=== PATIENT | female | born 1980 | race Caucasian/White ===

== ENCOUNTER 2016-11-15 11:23 | Emergency (ER) | payer SELFPAY ==
[~2016-11-15] VITALS: Ht 152.4 cm; Wt 85.0 kg
[2016-11-15 11:28] VITALS: BP 132/87; PULSE 72; RESP 16; TEMP 98.4; O2SAT 99
[2016-11-15 12:10] LABS: BLOOD, URINE NEG (NEG); GLUCOSE,URINE NEG (NEG); KETONE, URINE NEG (NEG); NITRITE,URINE NEG (NEG)
[2016-11-15 12:14] LABS: METHOD OF COLLECTION CLEAN CATCH; URINE COLOR YELLOW (YELLW/STRAW)
[2016-11-15 12:16] LABS: RBC, URINE 0-3 /hpf (0-3); SQUAMOUS EPITHELIAL CELL URINE 0-5 /hpf (0-5); WBC, URINE 0-2 /hpf (0-5)
[2016-11-15 12:17] LABS: COMMENT (UR) CULT NOT INDICATED; CULTURE IF INDICATED CULT NOT INDICATED
--- NOTE | 2016-11-15 12:20 | PD ---
HPI Chief Complaint: Dizziness Time Seen by Provider: 12:02 Travel History International Travel<30 days: No Contact w/Intl Traveler<30days: No Traveled to known affect area: No History of Present Illness HPI 36-year-old woman presents to the emergency department complaining of feeling lightheaded and dizzy. She's been late on her period which is unusual for her. Her period was due about 8 days ago. She's had a little bit of abnormal vaginal discharge. She also had nausea with one episode of vomiting. States she just hasn't really felt like herself for the past several days. She sexually active one male partner. She otherwise had been feeling generally well and healthy prior to this. History Past Medical History Medical History: Denies Significant Hx LMP: 10/08/2016 Social History Tobacco Use: No Allergies-Medications (Allergen,Severity, Reaction): Coded Allergies: No Known Allergies (Unverified , 11/15/16) Reported Meds & Prescriptions Reported Meds & Active Scripts Active No Active Prescriptions or Reported Medications Review of Systems Except as stated in HPI: all other systems reviewed are Neg Physical Exam Narrative GENERAL: Well-appearing 36 year-old woman, no acute distress. SKIN: Focused skin assessment warm/dry. NECK: Trachea midline. No JVD. CARDIOVASCULAR: Regular rate and rhythm. No murmur appreciated. RESPIRATORY: No accessory muscle use. Clear to auscultation. Breath sounds equal bilaterally. GASTROINTESTINAL: Abdomen soft, non-tender, nondistended. Hepatic and splenic margins not palpable. MUSCULOSKELETAL: No obvious deformities. No edema. PELVIC: Normal external female genitalia. Thin white vaginal discharge in the vaginal vault. Normal appearance of the cervix with a small red nodule at the 11 o'clock position. Mild adnexal tenderness. No cervical motion tenderness. No palpable uterine enlargement or adnexal masses. Data Data Last Documented VS Vital Signs Date Time Temp Pulse Resp B/P Pulse Ox O2 Delivery O2 Flow Rate FiO2 11/15/16 13:40 68 16 116/82 100 Room Air 11/15/16 11:28 98.4 Orders Urinalysis - C+S If Indicated (11/15/16 12:03) Ed Urine Pregnancytest Poc (11/15/16 12:03) Complete Blood Count With Diff (11/15/16 12:08) Basic Metabolic Panel (Bmp) (11/15/16 12:08) Gc And Chlamydia Pcr (11/15/16 12:08) Wet Prep Profile (11/15/16 12:08) Thyroid Stimulating Hormone (11/15/16 12:08) Labs Laboratory Tests Test 11/15/16 11/15/16 11/15/16 12:00 12:15 12:35 Urine Collection Type CLEAN CATCH Urine Color YELLOW Urine Turbidity CLEAR Urine pH 7.0 Urine Specific [place] 1.012 Urine Protein NEG mg/dL Urine Glucose (UA) NEG mg/dL Urine Ketones NEG mg/dL Urine Occult Blood NEG Urine Nitrite NEG Urine Bilirubin NEG Urine Leukocyte Esterase NEG Urine RBC 0-3 /hpf Urine WBC 0-2 /hpf Urine Squamous Epithelial 0-5 /hpf Cells Microscopic Urinalysis Comment CULT NOT INDICATED Urine Collection Time 12:00 White Blood Count 7.4 TH/MM3 Red Blood Count 4.85 MIL/MM3 Hemoglobin 14.5 GM/DL Hematocrit 41.5 % Mean Corpuscular Volume 85.4 FL Mean Corpuscular Hemoglobin 29.9 PG Mean Corpuscular Hemoglobin 35.0 % Concent Red Cell Distribution Width 12.1 % Platelet Count 177 TH/MM3 Mean Platelet Volume 10.3 FL Neutrophils (%) (Auto) 70.1 % Lymphocytes (%) (Auto) 22.2 % Monocytes (%) (Auto) 6.6 % Eosinophils (%) (Auto) 0.5 % Basophils (%) (Auto) 0.6 % Neutrophils # (Auto) 5.3 TH/MM3 Lymphocytes # (Auto) 1.6 TH/MM3 Monocytes # (Auto) 0.5 TH/MM3 Eosinophils # (Auto) 0.0 TH/MM3 Basophils # (Auto) 0.0 TH/MM3 CBC Comment DIFF FINAL Differential Comment Sodium Level 144 MEQ/L Potassium Level 3.8 MEQ/L Chloride Level 109 MEQ/L Carbon Dioxide Level 28.7 MEQ/L Anion Gap 6 MEQ/L Blood Urea Nitrogen 7 MG/DL Creatinine 0.80 MG/DL Estimat Glomerular Filtration 82 ML/MIN Rate Random Glucose 82 MG/DL Calcium Level 8.4 MG/DL Thyroid Stimulating Hormone 1.710 uIU/ML 3rd Gen Clue Cells (Wet Prep) NONE SEEN Vaginal Trichomonas (Wet Prep) NONE SEEN Vaginal Yeast (Wet Prep) NONE SEEN MDM Medical Decision Making Medical Screen Exam Complete: Yes Emergency Medical Condition: Yes Interpretation(s) LABS: CBC is unremarkable. BMP is unremarkable. TSH normal UA negative Wet prep negative Differential Diagnosis Anemia, electrolyte abnormality, thyroid disease, pelvic infection, UTI, other Narrative Course Medical decision making INITIAL: 36 year-old woman presents emergency Department with vague symptoms of feeling lightheaded dizzy and not well. She is a little bit of nausea once or vomiting. She is not . We'll check UA. We'll check basic labs. We' ll check thyroid studies. Diagnosis Primary Impression: Weakness Additional Instructions: Follow-up with your primary doctor in the next 2-4 days. Return to the emergency department for any new or worsening symptoms. Med/Other Pt SpecificInfo: No Change to Meds Scripts No Active Prescriptions or Reported Meds Disposition: 01 DISCHARGE HOME Condition: Stable Vidal Hurtado MD Nov 15, 2016 12:20
[2016-11-15 12:26] LABS: AUTOMATED NEUTROPHIL # 5.3 TH/MM3 (1.8-7.7); BASOPHIL % 0.6 % (0.0-2.0); EOSINOPHIL % 0.5 % (0.0-4.0); HEMATOCRIT 41.5 % (35.0-46.0); HEMO FLAGS DIFF FINAL; LYMPH % 22.2 % (9.0-44.0); LYMPHOCYTE # 1.6 TH/MM3 (1.0-4.8); MEAN CELL VOLUME 85.4 FL (80.0-100.0); MEAN CORPUSCULAR HEMOGLOBIN 29.9 PG (27.0-34.0); MONO % 6.6 % (0.0-8.0); NEUT % 70.1 % (16.0-70.0); PLATELET COUNT 177 TH/MM3 (150-450); RED BLOOD COUNT 4.85 MIL/MM3 (4.00-5.30); RED CELL DISTRIBUTION WIDTH 12.1 % (11.6-17.2); WHITE BLOOD COUNT 7.4 TH/MM3 (4.0-11.0)
[2016-11-15 12:33] LABS: POTASSIUM 3.8 MEQ/L (3.5-5.1)
[2016-11-15 12:36] LABS: BICARBONATE 28.7 MEQ/L (21.0-32.0)
[2016-11-15 12:40] VITALS: BP 119/61; PULSE 74; RESP 18; O2SAT 97
[2016-11-15 13:40] VITALS: BP 116/82; PULSE 68; RESP 16; O2SAT 100
[2016-11-15 17:41] LABS: CHLAMYDIA PCR NOT DETECTED (NOT DETECT); NEISSERIA PCR NOT DETECTED (NOT DETECT)
== END 2016-11-15 14:21 | disposition home or self-care (01) ==
LOC: PHED 11:23
DX: R53.1 Weakness (principal); R42 Dizziness and giddiness; N89.8 Other specified noninflammatory disorders of vagina; R11.2 Nausea with vomiting, unspecified
CPT/HCPCS: 80048; 81001; 84443; 84703; 85025; 87210; 87491; 87591; 99283

== ENCOUNTER 2016-11-23 19:43 | Emergency (ER) | payer SELFPAY ==
[~2016-11-23] VITALS: Ht 152.4 cm; Wt 85.0 kg
[2016-11-23 19:45] VITALS: BP 150/105; PULSE 76; RESP 16; TEMP 98.2; O2SAT 98
[2016-11-23 20:37] LABS: BLOOD, URINE NEG (NEG); GLUCOSE,URINE NEG (NEG); KETONE, URINE NEG (NEG); NITRITE,URINE NEG (NEG)
[2016-11-23 20:38] LABS: AUTOMATED NEUTROPHIL # 6.3 TH/MM3 (1.8-7.7); BASOPHIL # 0.2 TH/MM3 (0-0.2); BASOPHIL % 2.3 % (0.0-2.0); EOSINOPHIL # 0.1 TH/MM3 (0-0.4); EOSINOPHIL % 0.7 % (0.0-4.0); HEMATOCRIT 41.6 % (35.0-46.0); HEMO FLAGS DIFF FINAL; LYMPH % 21.7 % (9.0-44.0); MEAN CELL VOLUME 85.4 FL (80.0-100.0); MEAN CORPUSCULAR HEMOGLOBIN 29.6 PG (27.0-34.0); MEAN CORPUSCULAR HGB CONC 34.7 % (32.0-36.0); MONO % 5.8 % (0.0-8.0); NEUT % 69.5 % (16.0-70.0); PLATELET COUNT 210 TH/MM3 (150-450); RED BLOOD COUNT 4.87 MIL/MM3 (4.00-5.30); RED CELL DISTRIBUTION WIDTH 12.6 % (11.6-17.2); WHITE BLOOD COUNT 9.1 TH/MM3 (4.0-11.0)
[2016-11-23 20:43] LABS: BACTERIA, URINE RARE /hpf; RBC, URINE 0-2 /hpf (0-3); SQUAMOUS EPITHELIAL CELL URINE 0-5 /hpf (0-5); URINE COLOR YELLOW (YELLW/STRAW); WBC, URINE 0-2 /hpf (0-5)
[2016-11-23 20:44] LABS: COMMENT (UR) CULT NOT INDICATED; CULTURE IF INDICATED CULT NOT INDICATED
[2016-11-23 20:45] LABS: CHLORIDE 105 MEQ/L (98-107); POTASSIUM 3.5 MEQ/L (3.5-5.1); SODIUM (NA) 141 MEQ/L (136-145)
[2016-11-23 20:49] LABS: ANION GAP 8 MEQ/L (5-15); BICARBONATE 28.1 MEQ/L (21.0-32.0); BLOOD UREA NITROGEN 10 MG/DL (7-18)
[2016-11-23 20:52] LABS: ALT (GPT) 33 U/L (10-53); AST (GOT) 20 U/L (15-37); GLOMERULAR FILTRATION RATE 74 ML/MIN (>89)
[2016-11-23 20:54] LABS: TOTAL BILIRUBIN ADULT 0.7 MG/DL (0.2-1.0)
[2016-11-23 20:55] LABS: ALKALINE PHOSPHATASE 91 U/L (45-117)
[2016-11-23 20:57] LABS: BETA HCG QUANT 34 MIU/ML (0-5)
--- NOTE | 2016-11-23 21:28 | PD ---
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 She states she has a titer test scheduled for Friday. She did not know she was when she came in but does have a positive beta titer at 34. She has some slight midline suprapubic discomfort. She states she had some slight spotting today. She thinks her blood type is B+. PFS Past Medical History Medical History: Denies Significant Hx Diminished Hearing: No Tetanus Vaccination: Unknown Influenza Vaccination: No ?: Unknown LMP: october 07 Past Surgical History Surgical History: No Previous Surgery Social History Alcohol Use: No Tobacco Use: No Substance Use: No Allergies-Medications (Allergen,Severity, Reaction): Coded Allergies: No Known Allergies (Unverified , 11/15/16) Reported Meds & Prescriptions Reported Meds & Active Scripts Active No Active Prescriptions or Reported Medications Review of Systems Except as stated in HPI: all other systems reviewed are Neg Physical Exam Narrative GENERAL: The patient is alert, oriented 3 in minimal apparent distress with her suprapubic discomfort. She is more anxious because of having missed her menstrual period is painful. Her vital signs show blood pressure 150/105 but otherwise normal. SKIN: Focused skin assessment warm/dry. HEAD: Atraumatic. Normocephalic. EYES: Pupils equal and round. No scleral icterus. No injection or drainage. ENT: No nasal bleeding or discharge. Mucous membranes pink and moist. NECK: Trachea midline. No JVD. CARDIOVASCULAR: Regular rate and rhythm. No murmur appreciated. RESPIRATORY: No accessory muscle use. Clear to auscultation. Breath sounds equal bilaterally. GASTROINTESTINAL: Abdomen soft, non-tender, nondistended. Hepatic and splenic margins not palpable. No guarding or rebound is present. MUSCULOSKELETAL: No obvious deformities. No clubbing. No cyanosis. No edema. NEUROLOGICAL: Awake and alert. No obvious cranial nerve deficits. Motor grossly within normal limits. Normal speech. PSYCHIATRIC: Appropriate mood and affect; insight and judgment normal. Data Data Last Documented VS Vital Signs Date Time Temp Pulse Resp B/P Pulse Ox O2 Delivery O2 Flow Rate FiO2 11/23/16 19:45 98.2 76 16 150/105 98 Orders Ed Urine Pregnancytest Poc (11/23/16 20:22) Complete Blood Count With Diff (11/23/16 20:26) Comprehensive Metabolic Panel (11/23/16 20:26) Beta Hcg (Quant/Titer) (11/23/16 20:26) Urinalysis - C+S If Indicated (11/23/16 20:28) Complete Rh (11/23/16 21:30) Labs Laboratory Tests Test 11/23/16 20:30 White Blood Count 9.1 TH/MM3 Red Blood Count 4.87 MIL/MM3 Hemoglobin 14.4 GM/DL Hematocrit 41.6 % Mean Corpuscular Volume 85.4 FL Mean Corpuscular Hemoglobin 29.6 PG Mean Corpuscular Hemoglobin 34.7 % Concent Red Cell Distribution Width 12.6 % Platelet Count 210 TH/MM3 Mean Platelet Volume 11.3 FL Neutrophils (%) (Auto) 69.5 % Lymphocytes (%) (Auto) 21.7 % Monocytes (%) (Auto) 5.8 % Eosinophils (%) (Auto) 0.7 % Basophils (%) (Auto) 2.3 % Neutrophils # (Auto) 6.3 TH/MM3 Lymphocytes # (Auto) 2.0 TH/MM3 Monocytes # (Auto) 0.5 TH/MM3 Eosinophils # (Auto) 0.1 TH/MM3 Basophils # (Auto) 0.2 TH/MM3 CBC Comment DIFF FINAL Differential Comment Urine Color YELLOW Urine Turbidity CLEAR Urine pH 6.0 Urine Specific [place] 1.012 Urine Protein NEG mg/dL Urine Glucose (UA) NEG mg/dL Urine Ketones NEG mg/dL Urine Occult Blood NEG Urine Nitrite NEG Urine Bilirubin NEG Urine Leukocyte Esterase NEG Urine RBC 0-2 /hpf Urine WBC 0-2 /hpf Urine Squamous Epithelial 0-5 /hpf Cells Urine Bacteria RARE /hpf Microscopic Urinalysis Comment CULT NOT INDICATED Sodium Level 141 MEQ/L Potassium Level 3.5 MEQ/L Chloride Level 105 MEQ/L Carbon Dioxide Level 28.1 MEQ/L Anion Gap 8 MEQ/L Blood Urea Nitrogen 10 MG/DL Creatinine 0.88 MG/DL Estimat Glomerular Filtration 74 ML/MIN Rate Random Glucose 89 MG/DL Calcium Level 8.5 MG/DL Total Bilirubin 0.7 MG/DL Aspartate Amino Transf 20 U/L (AST/SGOT) Alanine Aminotransferase 33 U/L (ALT/SGPT) Alkaline Phosphatase 91 U/L Total Protein 7.1 GM/DL Albumin 3.9 GM/DL Human Chorionic Gonadotropin, 34 MIU/ML Quant Blood Type B POSITIVE Rho(D) Type POSITIVE MDM Medical Decision Making Medical Screen Exam Complete: Yes Emergency Medical Condition: Yes Medical Record Reviewed: Yes Interpretation(s) The CBC is normal. The complete metabolic profile is normal except for a GFR of 74. The urinalysis is normal except for rare bacteria and culture is not indicated. The patient's blood type is B+. Differential Diagnosis Rh- titerunlikely, ectopic , intrauterine , dysfunctional uterine bleeding, subchorionic hemorrhage bleeding Narrative Course The patient has an early , too early to detect the location. The fact that she has midline pain and pain on one of the other sides decreases the suspicion for ectopic . Nevertheless, the patient needs to follow-up with her can cleaner Friday and get the titer repeated Friday as her can cleaner had requested. Diagnosis Primary Impression: Early stage of Additional Instructions: As we discussed, follow-up with your can cleaner as scheduled and do get the titer repeated on Friday. Her blood type is indeed B positive. Scripts No Active Prescriptions or Reported Meds Disposition: DISCHARGE HOME Condition: Stable Yung Stevens MD Nov 23, 2016 21:28
[2016-11-23 23:05] VITALS: BP 148/89
== END 2016-11-23 23:17 | disposition home or self-care (01) ==
LOC: PHED 19:43
DX: O26.899 Other specified pregnancy related conditions, unspecified trimester (principal); R10.2 Pelvic and perineal pain; Z3A.00 Weeks of gestation of pregnancy not specified
CPT/HCPCS: 80053; 81001; 84702; 84703; 85025; 99282